=== PATIENT | female | born 1955 | race Caucasian/White ===

== ENCOUNTER 2019-02-22 17:39 | Observation (INO) | payer MEDICARE ==
[2019-02-22] MEDS ORDERED: Lidocaine 1% w/Epinephrine 1:100K 20 ML VIAL ONE ×2 (17:50→19:14)
[2019-02-22] MEDS ORDERED: Morphine 4 MG/ML VIAL ONE (18:08)
[2019-02-22] MEDS ORDERED: Promethazine HCl 25 MG/ML VIAL ONE (18:09)
--- NOTE | 2019-02-22 18:16 | RAD ---
RIGHT KNEE FOUR VIEWS: 02/22/19 HISTORY: Knee pain status post fall. There are mild arthritic changes of the medial and patellofemoral compartments. There is no fracture or joint effusion. IMPRESSION: No evidence of fracture. POS: YINA
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
--- NOTE | 2019-02-22 18:19 | RAD ---
RIGHT FOREARM TWO VIEWS: 02/22/19 HISTORY: Fall with forearm pain. There is an elbow joint effusion present with elevation of the anterior fat pad. Some slight deformit y to the radial head which appears to represent a radial head fracture. No other abnormalities. IMPRESSION: Radial head fracture with elbow joint effusion. POS: YINA
[2019-02-22 18:20] LABS: #Basophils 0.1 thou/uL (0.0-0.2); #Eosinphils 0.1 thou/uL (0.0-0.7); #Lymphocytes 1.4 thou/uL (1.20-3.40); #Monocytes 0.5 thou/uL (0.11-0.59); #Neutrophils 5.9 thou/uL (1.40-6.50); %Basophils 0.7 % (0.0-1.0); %Eosinophils 1.6 % (0.0-10.0); %Lymphocytes 17.5 % (21.0-51.0); %Monocytes 6.4 % (0.0-10.0); %Neutrophils 73.8 % (42.0-75.0); Hemoglobin 13.3 g/dL (12.0-16.0); Mean Corpuscular HGB CONC 34.1 g/dL (32.0-36.0); Mean Corpuscular Volume 96.6 fL (78.0-98.0); Mean Platelet Volume 6.8 fL (7.4-10.4); Platelet Count 273 thou/uL (130-400); RBC Distribution Width 10.9 % (11.5-14.5); Red Blood Cell (RBC) Count 4.04 mill/uL (4.20-5.40)
[2019-02-22 18:44] LABS: ALT (SGPT) 14 U/L (8-55); AST (SGOT) 19 U/L (5-34); Albumin 4.4 g/dL (3.4-4.8); Alkaline Phosphatase 53 U/L (40-150); Anion Gap 14 mmol/L (10-20); BUN (Urea Nitrogen) 15 mg/dL (9.8-20.1); Bilirubin, Total 0.5 mg/dL (0.2-1.2); Calc. Creatinine Clearance 0 mL/min (70-130); Calcium 9.6 mg/dL (7.8-10.44); Carbon Dioxide 25 mmol/L (23-31); Chloride 105 mmol/L (98-107); Estimated GFR-MDRD 77; Globulin 2.3 g/dL (2.4-3.5); Glucose 111 mg/dL (80-115); Magnesium 2.1 mg/dL (1.6-2.6); Potassium 4.2 mmol/L (3.5-5.1); Protein, Total 6.7 g/dL (6.0-8.3); Sodium 140 mmol/L (136-145)
--- NOTE | 2019-02-22 18:59 | CT ---
CT OF BRAIN PERFORMED WITHOUT CONTRAST ENHANCEMENT: 02/22/19 HISTORY: Fall with head injury, laceration to scalp. There is some motion artifact on this exam. The ventricular and cisternal system is within normal guan its. There are no signs of intracerebral hemorrhage or extra-axial fluid collections. Mastoid air rosalva ls and visualized sinuses are clear. There are postoperative changes in the region of the sinuses. IMPRESSION: No acute intracranial abnormalities. POS: YINA
--- NOTE | 2019-02-22 19:00 | CT ---
CT OF CERVICAL SPINE PERFORMED WITHOUT CONTRAST ENHANCEMENT: 02/22/19 HISTORY: Neck pain status post fall. Vertebral bodies are normal in height. Disc spaces all are relatively well preserved. The facets are in normal alignment. There is no signs of canal or foraminal stenosis. There is no CT evidence for fr acture. IMPRESSION: No CT evidence of fracture of the cervical spine. POS: YINA
[2019-02-22 21:29] LABS: Bilirubin Negative (Negative); Blood, Urine Small (Negative); Clarity CLEAR (Clear); Glucose, Urine (Dipstick) Negative (Negative); Leukocyte Large (Negative); Nitrite Negative (Negative); Protein, Urine (Dipstick) Negative (Neg-Trace); Specific Gravity, Urine 1.011 (1.002-1.036); Urobilinogen 0.2 mg/dL (0.2-1.0); pH, Urine 6.5 (5.0-9.0)
[2019-02-22 21:31] LABS: Bacteria/HPF None Seen HPF (None Seen); Hyaline Casts/LPF 0-3 HYALINE CAST LPF (0-3 Hyaline); Squamous Epithelial 0-3 HPF (0-3); WBC/HPF 21-50 HPF (0-3)
[2019-02-22] MEDS ORDERED: Ondansetron ODT 4 MG TAB PO PRN (21:38)
[2019-02-22] MEDS: Acetaminophen 325 MG TAB PO PRN (22:33)
[2019-02-22] MEDS ORDERED: cefTRIAXone\\ROCEPHIN 1 GM in Sodium Chloride 0.9% 100 ML IVPB SCH (23:00)
[2019-02-23 00:54] VITALS: BMI 20.2
[2019-02-23] MEDS ORDERED: Non-Formulary Item 1 EACH (Fluticasone/Salmeterol [Advair Diskus 250/50] 1 EACH) IH PRN (02:41)
[2019-02-23] MEDS ORDERED: Montelukast Sodium 10 mg Tablet PO PRN (02:41)
[2019-02-23] MEDS ORDERED: traZODone HCl 50 MG TAB PO PRN (02:41)
[2019-02-23] MEDS ORDERED: Budesonide 0.25 MG/2 ML NEB INH PRN (02:41)
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
[2019-02-23 05:30] LABS: #Eosinphils 0.1 thou/uL (0.0-0.7); #Lymphocytes 1.9 thou/uL (1.20-3.40); #Monocytes 0.5 thou/uL (0.11-0.59); #Neutrophils 3.1 thou/uL (1.40-6.50); %Basophils 0.8 % (0.0-1.0); %Eosinophils 1.9 % (0.0-10.0); %Lymphocytes 33.5 % (21.0-51.0); %Monocytes 9.1 % (0.0-10.0); %Neutrophils 54.8 % (42.0-75.0); Hemoglobin 11.8 g/dL (12.0-16.0); Mean Corpuscular HGB CONC 35.1 g/dL (32.0-36.0); Mean Corpuscular Hemoglobin 34.2 pg (27.0-31.0); Mean Corpuscular Volume 97.6 fL (78.0-98.0); Mean Platelet Volume 7.1 fL (7.4-10.4); Platelet Count 231 thou/uL (130-400); Red Blood Cell (RBC) Count 3.46 mill/uL (4.20-5.40); White Blood Cell (WBC) Count 5.6 thou/uL (4.8-10.8)
[2019-02-23 05:56] LABS: Anion Gap 11 mmol/L (10-20); BUN (Urea Nitrogen) 9 mg/dL (9.8-20.1); Calc. Creatinine Clearance 77 mL/min (70-130); Calcium 8.4 mg/dL (7.8-10.44); Carbon Dioxide 22 mmol/L (23-31); Chloride 112 mmol/L (98-107); Estimated GFR-MDRD Greater than 90; Glucose 78 mg/dL (80-115); Potassium 3.7 mmol/L (3.5-5.1); Sodium 141 mmol/L (136-145)
[2019-02-23] MEDS ORDERED: Enoxaparin Sodium 40 MG/0.4 ML SYRINGE SC SCH (09:00)
[2019-02-23] MEDS: Acetaminophen 325 MG TAB PO PRN (09:01)
--- NOTE | 2019-02-23 11:50 | ULT ---
BILATERAL CAROTID DUPLEX ULTRASOUND: Date: 02/23/19 HISTORY: Syncope. FINDINGS: Real-time color Doppler evaluation of the right and left carotid systems was performed. On the right side, peak systolic velocities of the common carotid were 103 cm/second. Internal carot id velocities were 96 cm/second and external carotid velocities were 103 cm/second. On the left side, peak systolic velocities of the common carotid were 100 cm/second. Internal caroti d velocities were 91 cm/second and external carotid velocities were 74 cm/second. Vertebral flow was antegrade bilaterally. IMPRESSION: No evidence of hemodynamically significant stenosis of either internal carotid artery. POS: TELLY
[2019-02-23 12:00] VITALS: BP 120/73; TEMP 98.7
--- NOTE | 2019-02-23 14:53 | PDOC.PN ---
- Subjective Encounter Start Date: 02/23/19 Encounter Start Time: 09:00 was seen today in follow-up of syncope. She is complaining of swelling and pain in her right hand, this started after the cast was placed for the fractured proximal radial. - Objective Resuscitation Status - Order Detail: 02/22/19 21:38 Resuscitation Status Routine Resuscitation Status: FULL: Full Resuscitation MAR Reviewed: Yes Vital Signs & Weight: Vital Signs (12 hours) Temp Pulse Resp BP Pulse Ox 02/23/19 11:59 98.7 F 77 16 120/73 98 02/23/19 07:40 98.4 F 73 20 107/71 96 02/23/19 04:00 98.1 F 69 16 99/73 97 Weight Weight 125 lb 8 oz I&O: 02/22/19 02/23/19 02/24/19 06:59 06:59 06:59 Intake Total 460 Balance 460 Result Diagrams: 02/23/19 04:56 02/23/19 04:56 Phys Exam - Physical Examination HEENT: PERRLA Respiratory: no wheezing, no rales, no rhonchi, clear to auscultation bilateral Cardiovascular: RRR, no significant murmur, no rub Gastrointestinal: soft, non-tender, no distention, positive bowel sounds Musculoskeletal: no edema Dx/Plan (1) Syncope Code(s): R55 - SYNCOPE AND COLLAPSE Status: Acute (2) Fracture of radius, proximal, right, closed Code(s): S52.101A - UNSP FRACTURE OF UPPER END OF RIGHT RADIUS, INIT FOR CLOS FX Status: Acute - Plan * Syncope- ? etiology- Prolactin was elevated- will Consult Neurology- for concern of Seizure * Continue to monitor for arrhythmia- and she may need to have an event monitor or loop recorder * Echo and doppler have been ordered * She and her were visiting from out of town. She normally receives her medical care from [facility] in [place]- she may be able to complete her work-up as an outpatient through her doctors there.
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
== END 2019-02-23 17:30 | disposition home or self-care (01) ==
LOC: ERS 17:39 → 2SE 20:14
PROVIDERS: ADMIT Hospitalist; ATTEND Hospitalist
DX: R55 Syncope and collapse (principal); S52.121A Displaced fracture of head of right radius, initial encounter for closed fracture; N39.0 Urinary tract infection, site not specified; S01.81XA Laceration without foreign body of other part of head, initial encounter; J45.909 Unspecified asthma, uncomplicated; Z88.1 Allergy status to other antibiotic agents; Z91.018 Allergy to other foods; Z98.890 Other specified postprocedural states; W19.XXXA Unspecified fall, initial encounter; Y92.481 Parking lot as the place of occurrence of the external cause
CPT/HCPCS: 24650; 70450; 71045; 72125; 73060; 73090; 73564; 80048; 80053; 83735; 84146; 84484; 85025 ×2; 87086; 93005; 93306; 93880; 96361; 96372; 96374; 96375; 99285; G0378 ×2; 36415; 81003; 81015; J0696; J1650; J2001; J2270; J2550; J7050